=== PATIENT | male | born 2000 | race Hispanic/Latino ===

== ENCOUNTER 2022-01-05 10:39 | Emergency (ER) | payer OTHER ==
[~2022-01-05] VITALS: Ht 167.6 cm; Wt 96.0 kg
[2022-01-05 11:45] VITALS: BP 121/75; O2SAT 100
== END 2022-01-05 11:55 | disposition home or self-care (01) ==
LOC: EDBD 10:39 → M ED 10:39
DX: S80.12XA Contusion of left lower leg, initial encounter (principal); V13.9XXA Unspecified pedal cyclist injured in collision with car, pick-up truck or van in traffic accident, initial encounter; Y92.9 Unspecified place or not applicable; Y93.55 Activity, bike riding; Y99.9 Unspecified external cause status